=== PATIENT | female | born 1990 | race African-American/Black ===

== ENCOUNTER 2017-07-25 00:30 | Emergency (ER) | payer OTHER ==
[~2017-07-25] VITALS: Ht 170.2 cm; Wt 63.5 kg
[2017-07-25 00:35] VITALS: BP 121/73
--- NOTE | 2017-07-25 00:50 | Emergency Room Report ---
History of Present Illness General Chief Complaint: Chest Pain Source: Patient, EMS Present Illness HPI 27-year-old female, history of dextrocardia,? Renal insufficiency for unknown reason,, p/w chest pain for one week. Localized to substernal area, no radiation to back or other areas, sharp in nature, gradual in onset, lasted 30 min. multiple episodes. Occurred on exertion + rest. Denies SOB. Worsened with deep inspiration, and movement/twisting motion. Denies palpitations, diaphoresis , n/v. Denies fever, chills, cough, abd pain, recent viral illness. Denies trauma. Denies smoking, or family history of cardiac disease at a young age. Denies history of PE/DVT, no recent surgeries, prolonged immobilzation, malignancy, or use of OCPs/HRT. Allergies: Coded Allergies: PENICILLINS (Verified Allergy, Unknown, 07/25/17) Patient History Past Medical History: see triage record Past Surgical History: none Pertinent Family History: none Last Menstrual Period: UNK Reviewed Nursing Documentation: PMH: Agreed, PSxH: Agreed Nursing Documentation-PMH Hx Cardiac Problems: Yes Hx Gastrointestinal Problems: Yes - RENAL FAILURE Review of Systems All Other Systems: negative except mentioned in HPI Physical Exam Vital Signs Date Time Temp Pulse Resp B/P (MAP) Pulse Ox O2 Delivery O2 Flow Rate FiO2 07/25/17 00:22 98.1 76 16 121/73 99 Room Air Sp02 EP Interpretation: reviewed, normal General Appearance: normal inspection, well appearing, no apparent distress, alert, GCS 15, non-toxic Head: normocephalic, atraumatic Eyes: bilateral eye normal inspection, bilateral eye PERRL, bilateral eye EOMI ENT: normal ENT inspection, normal pharynx, normal voice, moist mucus membranes Neck: normal inspection, full range of motion, supple Respiratory: normal inspection, lungs clear, normal breath sounds, no respiratory distress, no retraction, no wheezing, speaking full sentences, chest symmetrical Cardiovascular #1: normal inspection, regular rate, rhythm, no edema, normal capillary refill, other - +chest wall tenderness bl Cardiovascular #2: 2+ radial (R), 2+ radial (L) Gastrointestinal: normal inspection, non tender, soft, non-distended, no guarding Musculoskeletal: normal inspection, back normal, normal range of motion, non- tender Neurologic: normal inspection, alert, oriented x3, responsive, motor strength/ tone normal, sensory intact, normal gait, speech normal Psychiatric: normal inspection, judgement/insight normal, memory normal Skin: normal inspection, normal color, no rash, warm/dry, well hydrated, normal turgor Medical Decision Making Diagnostic Impression: Primary Impression: Chest pain Additional Impression: Chronic renal insufficiency ER Course 27-year-old female p/w chest pain DDX: Musculoskeletal CP/costochondritis vs. pneumothorax vs. gastritis/GERD PE less likely given history and physical examination, not hypoxic/tachycardic, no risk factors, PERC negative. ACS less likely given age/history Plan: Labs, EKG, CXR Anticipate DC home as patient appears clinically well. ER course: Patient remains well appearing in ED. ambulating around ED chest pain free renal insufficiency on labs, already known to patient Disposition: Patient will be discharged to home Strict precautions discussed with patient on when to emergently return to the ED : this includes worsening/severe chest pain, palpitations, shortness of breath, syncopal episodes, fever or chills, which may indicate severe illness. Patient verbalized understanding. Patient instructed to follow up with their PMD within the next 2 days. Patient agrees with plan. Please note that this Emergency Department Report was dictated using [employer] technology software, occasionally this can lead to erroneous entry secondary to interpretation by the dictation equipment. EKG Diagnostic Results EP Interpretation: Yes Rate: normal Rhythm: NSR ST Segments: No acute changes , right axis deviation ASA given to patient: Yes Rhythm Strip EP Interpretation: Yes Rate: 70 Rhythm: NSR, no PVCs, no ectopy Chest X-ray CXR: Ordered: Yes 1 view Indication: Chest pain EP interpretation: Yes Interpretation: No consolidation, no effusion, no PTX, no acute cardiopulmonary disease Impression: No acute disease Electronically signed by Corbin Quinones MD Laboratory Tests Test 07/25/17 01:28 07/25/17 01:40 07/25/17 02:30 Urine Color Colorless Urine Appearance Clear Urine pH 7 (4.5-8.0) Urine Specific [place] 1.005 (1.005-1.035) Urine Protein 3+ (NEGATIVE) H Urine Glucose (UA) Negative (NEGATIVE) Urine Ketones Negative (NEGATIVE) Urine Occult Blood Negative (NEGATIVE) Urine Nitrite Negative (NEGATIVE) Urine Bilirubin Negative (NEGATIVE) Urine Urobilinogen Normal MG/DL (0.0-1.0) Urine Leukocyte Esterase 1+ (NEGATIVE) H Urine RBC 0-2 /HPF (0 - 2) Urine WBC 2-4 /HPF (0 - 2) Urine Squamous Epithelial Cells Many /LPF (NONE/OCC) H Urine Bacteria Few /HPF (NONE) Urine HCG, Qualitative Negative Sodium Level 134 MMOL/L (136-145) L Potassium Level 4.8 MMOL/L (3.5-5.1) Chloride Level 102 MMOL/L (98-107) Carbon Dioxide Level 23 MMOL/L (21-32) Anion Gap 9 mmol/L (5-15) Blood Urea Nitrogen 59 mg/dL (7-18) H Creatinine 4.1 MG/DL (0.55-1.30) H Estimate Glomerular Filtration Rate 15.5 mL/min (>60) Glucose Level 78 MG/DL (74-106) Calcium Level 8.6 MG/DL (8.5-10.1) Total Bilirubin 0.8 MG/DL (0.2-1.0) Aspartate Amino Transferase (AST) 220 U/L (15-37) H Alanine Aminotransferase (ALT) 179 U/L (12-78) H Alkaline Phosphatase 80 U/L (46-116) Troponin I 0.000 ng/mL (0.000-0.056) Pro-B-Type Natriuretic Peptide 26 pg/mL (0-125) Total Protein 6.5 G/DL (6.4-8.2) Albumin 2.9 G/DL (3.4-5.0) L Globulin 3.6 g/dL Albumin/Globulin Ratio 0.8 (1.0-2.7) L White Blood Count 8.0 K/UL (4.8-10.8) Red Blood Count 6.04 M/UL (4.20-5.40) H Hemoglobin 13.5 G/DL (12.0-16.0) Hematocrit 43.9 % (37.0-47.0) Mean Corpuscular Volume 73 FL (80-99) L Mean Corpuscular Hemoglobin 22.3 PG (27.0-31.0) L Mean Corpuscular Hemoglobin Concent 30.6 G/DL (32.0-36.0) L Red Cell Distribution Width 13.3 % (11.6-14.8) Platelet Count 258 K/UL (150-450) Mean Platelet Volume 8.9 FL (6.5-10.1) Neutrophils (%) (Auto) 60.5 % (45.0-75.0) Lymphocytes (%) (Auto) 24.9 % (20.0-45.0) Monocytes (%) (Auto) 11.3 % (1.0-10.0) H Eosinophils (%) (Auto) 1.8 % (0.0-3.0) Basophils (%) (Auto) 1.5 % (0.0-2.0) Last Vital Signs Date Time Temp Pulse Resp B/P (MAP) Pulse Ox O2 Delivery O2 Flow Rate FiO2 07/25/17 00:22 98.1 76 16 121/73 99 Room Air Disposition: HOME, SELF-CARE Condition: Improved Corbin Quinones M.D. Jul 25, 2017 00:50
[2017-07-25 02:03] LABS: BILIRUBIN, URINE NEGATIVE (NEGATIVE); COLOR,URINE COLORLESS; GLUCOSE, URINE (UA) NEGATIVE (NEGATIVE); KETONES,URINE NEGATIVE (NEGATIVE); LEUKOCYTE ESTERASE ,URINE 1+ (NEGATIVE); NITRITE,URINE NEGATIVE (NEGATIVE); PH,URINE 7 (4.5-8.0); PROTEIN,URINE 3+ (NEGATIVE); UROBILINOGEN,URINE NORMAL MG/DL (0.0-1.0)
[2017-07-25 02:04] LABS: APPEARANCE,URINE CLEAR
[2017-07-25 02:09] LABS: ANION GAP 9 mmol/L (5-15); BLOOD UREA NITROGEN 59 mg/dL (7-18); CALCIUM 8.6 MG/DL (8.5-10.1); CARBON DIOXIDE 23 MMOL/L (21-32); CHLORIDE 102 MMOL/L (98-107); CREATININE 4.1 MG/DL (0.55-1.30); POTASSIUM 4.8 MMOL/L (3.5-5.1); SODIUM 134 MMOL/L (136-145)
[2017-07-25 02:20] LABS: ALANINE AMINOTRANSFERASE 179 U/L (12-78); ALBUMIN 2.9 G/DL (3.4-5.0); ALBUMIN/GLOBULIN RATIO 0.8 (1.0-2.7); ALKALINE PHOSPHATASE 80 U/L (46-116); ASPARTATE AMINO TRANSFERASE 220 U/L (15-37); BILIRUBIN,TOTAL 0.8 MG/DL (0.2-1.0)
[2017-07-25 02:35] VITALS: BP 127/77
[2017-07-25 02:37] LABS: BASOPHILS % (AUTO) 1.5 % (0.0-2.0); EOSINOPHILS % (AUTO) 1.8 % (0.0-3.0); HEMATOCRIT 43.9 % (37.0-47.0); HEMOGLOBIN 13.5 G/DL (12.0-16.0); LYMPHOCYTES % (AUTO) 24.9 % (20.0-45.0); MEAN CORPUSCULAR VOLUME 73 FL (80-99); MONOCYTES % (AUTO) 11.3 % (1.0-10.0); NEUTROPHILS % (AUTO) 60.5 % (45.0-75.0); PLATELET COUNT 258 K/UL (150-450); RED BLOOD COUNT 6.04 M/UL (4.20-5.40); RED CELL DISTRIBUTION WIDTH 13.3 % (11.6-14.8)
[2017-07-25 04:35] VITALS: BP 125/69
[2017-07-25 05:11] VITALS: BP 127/77
--- NOTE | 2017-07-25 10:27 | Diagnostic Imaging Report ---
Indication: Chest pain Technique: One view of the chest Comparison: none Findings: Lungs and pleural spaces are clear. Heart size is normal Impression: No acute process
--- NOTE | 2017-07-25 18:53 | Cardiology Report ---
APPROVED REPORT EKG Measurement Heart [id number] 120P [id number] Normal sinus rhythm Right axis deviation Septal infarct, age undetermined Abnormal ECG
== END 2017-07-25 05:14 | disposition home or self-care (01) ==
LOC: EDBD 00:30 → EMR 00:35
DX: R07.89 Other chest pain (principal); N18.9 Chronic kidney disease, unspecified; Z88.0 Allergy status to penicillin
CPT/HCPCS: 36415; 71045; 80053; 81003; 81025; 83880; 84484; 85025; 93005; 99284

== ENCOUNTER 2018-08-12 12:11 | Emergency (ER) | payer MEDICARE, OTHER ==
[~2018-08-12] VITALS: Ht 167.6 cm; Wt 63.5 kg
--- NOTE | 2018-08-12 12:29 | NUR ---
ED Nurse Note: PT CALLED FROM WAITING ROOM BUT NOT THERE.
--- NOTE | 2018-08-12 12:46 | NUR ---
ED Nurse Note: PT WALKED IN TO ER TODAY FROM HOME. AOX4. PT C/O LEFT EARACHE, 02/01 X 6 DAYS AGO. PT DENIES INJURY OR TRAUMA. PT DENIES DISCHARGE OR CHANGES IN HEARING. PT HAS STEADY GAIT. PAIN UNRELIEVED BY OTC MEDICATIONS.
[2018-08-12 12:47] VITALS: BP 126/88
--- NOTE | 2018-08-12 12:52 | Emergency Room Report ---
History of Present Illness General Chief Complaint: Earache Source: Patient, Medical Record Present Illness HPI 28-year-old female patient presents the ER complaining of left-sided ear pain for the past week. Reports increased cerumen in the ER, states is been using Debrox and Q-tips without relief of symptoms. Reports decreased hearing in that ear. Denies recent swimming. Denies fever, chest pain, shortness of breath. Denies other aggravating or relieving factors. Allergies: Coded Allergies: PENICILLINS (Verified Allergy, Unknown, 07/25/17) Patient History Past Medical History: see triage record Last Menstrual Period: pt on birthcontrol Now: No : 1 Para: 1 Reviewed Nursing Documentation: PMH: Agreed; PSxH: Agreed Nursing Documentation-PMH Past Medical History: No History, Except For Hx Cardiac Problems: Yes - dextrocardia Hx Gastrointestinal Problems: Yes - RENAL FAILURE Review of Systems All Other Systems: negative except mentioned in HPI Physical Exam Vital Signs Date Time Temp Pulse Resp B/P (MAP) Pulse Ox O2 Delivery O2 Flow Rate FiO2 08/12/18 12:23 98.2 66 18 127/93 100 08/12/18 12:47 Room Air Sp02 EP Interpretation: reviewed, normal General Appearance: well appearing, no apparent distress, alert, GCS 15, non- toxic Head: normocephalic, atraumatic Eyes: bilateral eye normal inspection, bilateral eye PERRL ENT: hearing grossly normal, normal pharynx, no angioedema, normal voice, TMs + canals normal - Right, uvula midline, moist mucus membranes, other - Left ear : excessive cerumen noted, TM intact, no TM erythema or edema, no effusion, no TM perforation Neck: full range of motion Respiratory: lungs clear, normal breath sounds, no rhonchi, no respiratory distress, no accessory muscle use, no wheezing, speaking full sentences Cardiovascular #1: regular rate, rhythm, no edema Neurologic: alert, oriented x3, responsive, motor strength/tone normal, sensory intact Psychiatric: mood/affect normal Skin: no rash Medical Decision Making PA Attestation Dr. Engel is my supervising Physician whom patient management has been discussed with. Diagnostic Impression: Primary Impression: Excessive cerumen in left ear canal ER Course Pt presents to ED c/o ear pain. DDX considered but are not limited to rhinitis, sinusitis, otitis media, otitis externa, cerumen impaction. VITAL SIGNS are WNL, patient is afebrile. Ordered hydrogen peroxide. ED INTERVENTIONS: PE shows excessive cerumen in ear. No mastoid swelling or erythema, no rash or vesicles on face. Patient ear cleaned and flushed with saline and hydrogen peroxide. Cerumen removed however cerumen still noted in the ear canal, able to visualize TM, no erythema or edema, no perforation or effusion. Patient instructed not to use Q-tips. Follow-up with primary care provider for further treatment and referral. Discuss referral to ENT. Will cover patient with antibiotics to prevent infection. Will provide with mediation for excessive cerumen. DISCHARGE: Rx provided for Colace drops Rx provided for Neomycin abx drops At this time pt is stable for d/c to home. patient resting comfortably, no acute distress, nontoxic appearing, talking without difficulty, smiling. Patient to take medications as instructed Will provide with patient care instructions and any necessary prescriptions. Care plan and follow-up instructions provided. Patient instructed to follow-up with primary care in 3 - 5 days. Patient questions asked and answered. patient reports understanding and agreement treatment plan. ER precautions given. Patient instructed to return to ER immediately for any new or worsening of symptoms including but not limited to increasing SOB, persistent fever. - Please note that this Emergency Department Report was dictated using [employer] technology software, occasionally this can lead to erroneous entry secondary to interpretation by the dictation equipment. Last Vital Signs Date Time Temp Pulse Resp B/P (MAP) Pulse Ox O2 Delivery O2 Flow Rate FiO2 08/12/18 12:47 98.4 70 17 126/88 99 Room Air Status: improved Disposition: HOME, SELF-CARE Condition: Stable Scripts Neomycin/Polymyxin B Sulf/Hc* (CORTISPORIN EAR SOLUTION*) 10 Ml Solution 4 DROP LEFT EAR QID, #10 ML 0 Refills Prov: Savage Banda.Pavan 08/12/18 Docusate Sodium* (COLACE*) 100 Mg Capsule 100 MG OTIC DAILY, #4 CAP poke a hole in the capsule and squeeze into ear. Keep there for 15 minutes then rinse Prov: [place] Bal MD 08/12/18 Patient Instructions: Cerumen Impaction, Otitis Externa, [id number] Additional Instructions: Followup with primary care provider in 3 -5 days. Request referral to ENT. Avoid swimming, does not use Q-tips in ear. Take medications as directed. Patient questions asked and answered. ER precautions given, patient instructed to return to ER immediately for any new or worsening of symptoms. Savage Banda Aug 12, 2018 12:52
[2018-08-12] MEDS ORDERED: Hydrogen Peroxide 473ml Bottle TOPIC ONE (13:53)
[2018-08-12 14:53] VITALS: BP 122/86
[2018-08-12] MEDS ORDERED: COLACE100 MG OTIC (14:57)
[2018-08-12] MEDS ORDERED: CORTISPORIN EAR10 ML LEFT EAR (15:06)
--- NOTE | 2018-08-12 15:15 | NUR ---
ED Nurse Note: PT LAYING PEACEFULLY IN BED IN NAD. AOX4. PRESCRIPTIONS AND DISCHARGE PAPERWORK EXPLAINED TO PT. PT VERBALIZES UNDERSTANDING AND ALL QUESTIONS ANSWERED. PRESCRIPTIONS AND DISCHARGE PAPERWORK GIVEN TO PT AND ID WRISTBAND REMOVED. PT WALKED OUT OF ER WITH STEADY GAIT.
== END 2018-08-12 15:16 | disposition home or self-care (01) ==
LOC: EMR 12:58
DX: H61.22 Impacted cerumen, left ear (principal); Q24.0 Dextrocardia; Z88.0 Allergy status to penicillin
CPT/HCPCS: 99282; Z7502